=== PATIENT | female | born 1945 | race Caucasian/White ===

== ENCOUNTER 2024-05-06 14:51 | Outpatient (AMB) | payer MEDICARE, OTHER, SELFPAY ==
--- OUTSIDE RECORDS SUMMARY | 2024-05-06 14:53 | XMS_ITS | Continuity of Care Document ---
Author Organization [facility]. If a dditional information is needed, contact Health Information Management at [phone] Address [address] [place] [address] Phone Care Team Providers Care Nuclear Physics Professor Name Role Phone Unavailable Unavailable Unavailable Unavailable Unavailable Unavailable Problems Enteritis of small intestine Onset:08-Sep-2018 Marcell Davies DO Allergies and Adverse Reactions azithromycin(Allergy) Onset: 08-Sep-2018 Social History Smoking Status Tobacco smoking consumption unknown Recorded:
--- OUTSIDE RECORDS SUMMARY | 2024-05-06 14:53 | XMS_ITS | Clinical Summary ---
Author Organization [employer] [facility] ity Address [address] [place] [address] Care Team Providers Care Ring Cutter Lathe Operator Name Role Phone Ewa Betancourt MD Primary Care Provider [phone] Surgical History Surgery Date Site/Laterality Comments KNEE SURGERY 2005 Right PROCEDURE: HISTORICAL KNEE SURGERY; COMMENT: arthroscopy OTHER SURGICAL HISTORY 1985 Left PROCEDURE: HISTORY OTHER; COMMENT: for hip fracture Medical History Medical History Date Comments History of CVA (cerebrovascu lar accident) 02/28/2018 DX:History of CVA (cerebrova scular accident) HTN (hypertension) 02/28/2018 DX:HTN (hyper tension) Hypercholesteremia 02/28/2018 DX:Hyperchole steremia TITA (obstructive sleep apnea) 02/28/2018 DX :TITA (obstructive sleep apnea); COMMENT: [facility] Home Polysomnogram: Date 04/01/2018; AHI 45, Unclassified apneas 0; Obstructive apneas 217; Central apneas 52; Mixed apneas 12; hypopneas 149; average oxygen saturation 92% (lowest 82% with saturations <88% for 5% or more of study) - Obstructive Sleep Apnea - severe; mostly obstructive apneas with hypopneas; with sleep related hypoventilation by 2019 * Arthritis 01/03/2019 DX:Arthritis Incontinence of urine 01/03/2019 DX:Inconti nence of urine Asthma 01/03/2019 DX:Asthma Family History Medical History Relation Name Comments Heart attack Father Other: Other, atrial fibrillation Mother Relation Name Status Comments Brother Alive Father Mother Sister Alive Social History Tobacco Use Types Packs/Day Years Used Date Smoking Tobacco: Never Smokeless Tobacco: Never Alcohol Use Standard Drinks/Week Comments Yes 0 (1 standard drink = 0.6 oz pur e alcohol) Comments Unknown Sex and Gender Information Value Date Recorded Sex Assigned at Not on file Legal Sex Female 9:06 PM EST Gender Identity Not on file Sexual Orientation Not on file Obstetrics History Last Filed Vital Signs Vital Sign Reading Time Taken Comments Blood Pressure 128/70 01/08/2024 1:41 PM EDT Pulse 67 10/14/2022 9:05 AM EDT Temperature - - Respiratory Rate - - Oxygen Saturation - - Inhaled Oxygen Concentration - - Weight 67.6 kg (149 lb) 01/08/2024 1:41 PM EDT Height 147.3 cm (4' 10 ) 01/08/2024 1:41 PM EDT Body Mass Index 31.14 01/08/2024 1:41 PM EDT Plan of Treatment Health Maintenance Due Date Last Done Comments DTaP,Tdap,and Td Vaccines (1 - Tdap) 1964 Pneumococcal Vaccine: 50+ Years (1 of 2 - PCV) 1964 RSV Immunization Patients 60+ Years Old (1 - 1-dose 75+ series) 2020 Cholesterol Screening (Lipid Panel) 02/22/2022 Depression Screening 02/22/2022 Falls Risk Assessment 02/22/2022 Hepatitis C Screening 02/22/2022 Osteoporosis Screening (Bone Density Screening) 02/22/2022 Social Influencers of Health Screening 02/22/2022 Hypertension/CHF/CAD Annual BMP Blood Test 03/05/2022 COVID-19 Vaccine ( season) 2023 Influenza Vaccine (#1) 2023 9, 11/26/2017, 11/27/2016, Additional history exists Zoster Vaccines Completed 05/20/2018, 12/18/2017 HIB Vaccines Aged Out No longer eligi ble based on patient's age to complete this topic HPV Vaccines Aged Out No longer eligi ble based on patient's age to complete this topic Hepatitis A Vaccines Aged Out No long er eligible based on patient's age to complete this topic Hepatitis B Vaccines Aged Out No long er eligible based on patient's age to complete this topic IPV Vaccines Aged Out No longer eligi ble based on patient's age to complete this topic MMR Vaccines Aged Out No longer eligi ble based on patient's age to complete this topic Meningococcal ACWY Vaccine Aged Out N o longer eligible based on patient's age to complete this topic Meningococcal B Vacine Aged Out No lo nger eligible based on patient's age to complete this topic RSV Immunization Patients Under 20 months Aged Out No longer eligible based on patient's age to complete this topic Varicella Vaccines Aged Out No longer eligible based on patient's age to complete this topic Care Teams Ring Cutter Lathe Operator Relationship Specialty Start Date End Date Ewa Betancourt MD PCP - General Internal Medicine 07/23/18
--- NOTE | 2024-05-06 14:56 | A.OFFVIS_ITS ---
Vital Signs 05/06/24 15:00 Height 4 ft 11 in Weight 147 lb 11.355 oz BMI 29.8 BP 146/84 H Blood Pressure Location Rt brachial Position Sitting Pulse 54 Pulse Source Pulse Oximeter Pulse Oximetry (%) 97 Oxygen Delivery Method Room Air Intake Visit Reasons: Sleep apnea Allergies Azithromycin Allergy (Unknown, Uncoded 05/06/24 15:03) Rash HPI Comments Details: The patient is here for pulmonary evaluation. The patient is a 78-year-old woman with a known history of high blood pressure sleep apnea. She has been on CPAP for many years. She has been getting supplies from her [facility] [employer] [facility]. She does use a nasal cradle mask for many years and she has tolerated that. She does get a dry mouth however. She does not like the fullface mask and she could not tolerate that. We did talk about a chinstrap and she is willing to try. The patient has been on CPAP for many years and she uses it every night for more than 4 hours a night. The therapy has been affecting beneficial. Because she does have cardiovascular risk factors and a family history is important for her to continue the therapy. She does tolerated otherwise we can consider alternative therapies in the future. From a respiratory status the patient is doing well she does not need any respiratory medications at this time. Will plan to follow-up in a year's time if she has any issues prior to that she will call for an earlier assessment. [facility] Medical History (Updated 05/09/24 @ 13:39 by Bertin Mckee MD) TITA on CPAP Social History (Updated 05/06/24 @ 15:04 by Alicja Gipson CMA) Patient Tobacco Use Status: Never used Tobacco Review of Systems Const Reports difficulty sleeping and Denies fever(s) Eyes Reports no additional complaints ENT Reports nasal discharge Card Denies chest pain and Denies dyspnea on exertion Resp Denies dyspnea on exertion and Denies wheezing GI Reports no additional complaints Musc Reports no additional complaints Skin/Breast Denies rash Judd/Lymph Reports no additional complaints Aller/Immun Denies wheezing Physical Exam Vital Signs: Last Vital Signs Pulse 54 05/06/24 15:00 BP 146/84 H 05/06/24 15:00 Pulse Ox 97 05/06/24 15:00 Oxygen Delivery Method Room Air 05/06/24 15:00 BMI result Body Mass Index 29.8 Const General: comfortable HEENT Head: Yes normocephalic Neck Neck: Yes supple Chest Chest palpation & inspection: normal inspection of the chest Resp Effort & Inspection: normal respiratory effort Auscultation: clear to auscultation bilaterally Cardio Heart sounds: S1 normal heart sound present and S2 normal heart sound present GI Palpation (GI): Soft to palpation Skin General skin exam: no rashes or lesions noted Extrem General: Yes no clubbing, cyanosis or edema Assessment & Plan Assessment & Plan (1) TITA on CPAP: Code(s): G47.33 - Obstructive sleep apnea (adult) (pediatric) Category: Medical Plan Continue APAP therapy, needs supplies from her DME, [facility] F/U 1 yr Coding Level of Care Code New Pt Level 3 (52529) Diagnoses TITA on CPAP G47.33 Time Spent (min) 30
[2024-05-06 15:00] VITALS: BP 146/84; PULSE 54; O2SAT 97; BMI 29.8
== END 2024-05-06 15:22 | disposition home or self-care (01) ==
PROVIDERS: PCP Internal Medicine; Referring Provider Internal Medicine; Visit Provider Hospitalist
DX: G47.33 Obstructive sleep apnea (adult) (pediatric) (principal)
CPT/HCPCS: 99203

== ENCOUNTER → 2024-05-06 14:51 | Outpatient (BNVA) | payer MEDICARE, OTHER, SELFPAY | PROVIDERS: PCP Internal Medicine; Referring Provider Internal Medicine; Visit Provider Hospitalist | DX: G47.33 Obstructive sleep apnea (adult) (pediatric) (principal); Z99.89 Dependence on other enabling machines and devices | CPT/HCPCS: 99202 ==